=== PATIENT | female | born 1945 | race African-American/Black ===

== ENCOUNTER 2020-10-28 07:13 | Inpatient (IN) ==
[2020-10-28 08:24] LABS: Bilirubin,Urine Negative (Negative); Blood, Urine Small mg/dL (Negative); Glucose,Urine (UA) >=500 mg/dL (Negative); Ketones,Urine 20 mg/dL (Negative); Mucus,Urine Occasional /LPF (Occasional); Nitrite,Urine Negative (Negative); Protein,Urine 30 MG/DL; RBC,Urine 3 /HPF (0-4); Squamous Epithelial Cell,Urine Occasional /HPF (0-10); Urine Appearance CLEAR (Clear); Urine Color Yellow (Yellow); Urine Specific Gravity 1.032 (1.001-1.035); Urine Urobilinogen < 2.0 EU/DL (0.2-1.0); WBC,Urine <1 /HPF (0-6)
[2020-10-28] MEDS ORDERED: INSULIN REGULAR 100 UNIT/ML IV STA (08:27)
[2020-10-28 08:39] LABS: Basophils % 0.1 % (0.0-0.8); Eosinophils % 0.1 % (0.00-10.9); Hematocrit 50.7 VOL% (35.7-47.0); Hemoglobin 16.8 GM/DL (12.0-16.0); Immature Granulocytes Absolute 0.07 #; Lymphocytes # 0.1 10*3/uL (1.4-4.0); Lymphocytes % 1.8 % (21.3-54.2); Mean Corpuscular HGB Conc 33.1 GM/DL (32-36); Mean Platelet Volume 10.9 FL (9.6-12.0); Monocytes % 5.7 % (1.7-12.7); Neutrophils % 91.3 % (38.7-73.9); Platelet Count 159 T/CUMM (130-400); Red Blood Count 5.76 MC/CUMM (3.8-5.5); White Blood Count 7.3 T/CUMM (4-12)
[2020-10-28 08:58] LABS: Bilirubin,Total 0.9 MG/DL (0.2-1.0); Calcium 9.3 MG/DL (8.5-10.1); Osmolality,Calculated 280.1 MOS/KG (273-304); Potassium 5.1 MMOL/L (3.5-5.1); Total Protein 7.2 G/DL (6.4-8.3)
[2020-10-28 09:12] LABS: Lymphocytes 1 % (20-55); Platelet Estimate Adequate; Segmented Neutrophils 93 % (50-85); Total Cells Counted 100
[2020-10-28] MEDS ORDERED: SODIUM CHLORIDE 0.9% 500 ML IV STA (09:18)
[2020-10-28 09:29] LABS: INR 1.1; PT Patient Result 11.3 SECS (9.8-11.9)
[2020-10-28] MEDS ORDERED: MORPHINE 4 MG/1 ML VIAL IV STA (09:55)
[2020-10-28] MEDS ORDERED: ONDANSETRON 4 MG/2 ML VIAL IV STA (09:55)
[2020-10-28] MEDS ORDERED: MORPHINE 4 MG/1 ML VIAL ONE (09:56)
[2020-10-28] MEDS ORDERED: ONDANSETRON 4 MG/2 ML VIAL ONE (09:56)
[2020-10-28] MEDS ORDERED: HYDROmorphone 2 MG/1 ML VIAL IV PRN (10:35)
[2020-10-28] MEDS ORDERED: DOCUSATE SODIUM 100 MG CAPSULE PO PRN (10:36)
[2020-10-28] MEDS ORDERED: ACETAMINOPHEN 325 MG TABLET PO PRN (10:36)
[2020-10-28] MEDS ORDERED: hydrALAZINE 20 MG/1 ML VIAL IV PRN (10:36)
[2020-10-28] MEDS ORDERED: ALBUTEROL/IPRATROPIUM 3 ML NEB RESP TX PRN (10:36)
[2020-10-28] MEDS ORDERED: GLUCAGON 1 MG VIAL IM PRN ×2 (10:36→14:36)
[2020-10-28] MEDS ORDERED: ONDANSETRON 4 MG/2 ML VIAL IV PRN (10:36)
[2020-10-28] MEDS ORDERED: DEXTROSE 50% 25 GM/50 ML VIAL IV PRN ×2 (10:36→14:36)
[2020-10-28] MEDS ORDERED: PANTOPRAZOLE 40 MG TABLET PO SCH (10:45)
[2020-10-28] MEDS: SODIUM CHLORIDE 0.9% 1,000 ML IV SCH ×2 (12:05→20:05)
[2020-10-28] MEDS: cefTRIAXone 2,000 MG in SYRINGE 1 EACH IV SCH (13:00)
[2020-10-28] MEDS: INSULIN REGULAR 100 UNIT/ML SUBCUT SCH ×3 (13:13→20:53)
[2020-10-28] MEDS: atenoloL 50 MG TABLET PO SCH (16:03)
[2020-10-28] MEDS: amLODIPine 5 MG TABLET PO SCH (16:04)
[2020-10-28] MEDS: ANASTROZOLE 1 MG TABLET PO SCH (16:05)
[2020-10-28] MEDS: OLMESARTAN 20 MG TABLET PO SCH (16:06)
[2020-10-28] MEDS: ENOXAPARIN 40 MG/0.4 ML SYRINGE SUBCUT SCH (16:34)
[2020-10-29] MEDS: SODIUM CHLORIDE 0.9% 1,000 ML IV SCH ×3 (04:05→17:18)
[2020-10-29 05:54] LABS: Eosinophils # 0.1 10*3/uL (0.0-0.87); Eosinophils % 2.4 % (0.00-10.9); Hematocrit 41.7 VOL% (35.7-47.0); Immature Granulocytes Absolute 0.06 #; Lymphocytes # 0.2 10*3/uL (1.4-4.0); Lymphocytes % 3.2 % (21.3-54.2); Mean Corpuscular HGB Conc 32.1 GM/DL (32-36); Mean Corpuscular Volume 88.5 FL (87-102); Mean Platelet Volume 10.4 FL (9.6-12.0); Monocytes % 6.7 % (1.7-12.7); Neutrophils % 86.7 % (38.7-73.9); Platelet Count 138 T/CUMM (130-400); Red Blood Count 4.71 MC/CUMM (3.8-5.5); Red Cell Distribution Width 15.2 % (9.3-17.3); White Blood Count 5.9 T/CUMM (4-12)
[2020-10-29 06:01] LABS: Hemoglobin 13.4 GM/DL (12.0-16.0)
[2020-10-29 06:27] LABS: Albumin 2.5 G/DL (3.4-5.0); Bilirubin,Total 0.7 MG/DL (0.2-1.0); Calcium 8.2 MG/DL (8.5-10.1); Osmolality,Calculated 284.7 MOS/KG (273-304); Potassium 3.8 MMOL/L (3.5-5.1)
[2020-10-29 06:31] LABS: Eosinophils 1 % (0-10); Lymphocytes 6 % (20-55); Segmented Neutrophils 88 % (50-85); Total Cells Counted 100
[2020-10-29 06:32] LABS: Platelet Estimate Normal
[2020-10-29] MEDS: INSULIN REGULAR 100 UNIT/ML SUBCUT SCH ×4 (07:24→20:32)
[2020-10-29] MEDS: atenoloL 50 MG TABLET PO SCH (09:04)
[2020-10-29] MEDS: ANASTROZOLE 1 MG TABLET PO SCH (09:04)
[2020-10-29] MEDS: OLMESARTAN 20 MG TABLET PO SCH (09:04)
[2020-10-29] MEDS: amLODIPine 5 MG TABLET PO SCH (09:04)
[2020-10-29] MEDS: DEXAMETHASONE 4 MG TABLET PO SCH ×3 (09:04→20:31)
[2020-10-29] MEDS: PANTOPRAZOLE 40 MG VIAL IV SCH (09:05)
[2020-10-29] MEDS: ALPRAZolam 0.25 MG TABLET PO PRN (10:48)
[2020-10-29] MEDS: cefTRIAXone 2,000 MG in SYRINGE 1 EACH IV SCH (13:13)
[2020-10-29] MEDS: ENOXAPARIN 40 MG/0.4 ML SYRINGE SUBCUT SCH (13:13)
[2020-10-30 04:37] LABS: Hemoglobin 12.1 GM/DL (12.0-16.0); Immature Granulocytes Absolute 0.05 #; Lymphocytes # 0.1 10*3/uL (1.4-4.0); Lymphocytes % 1.6 % (21.3-54.2); Mean Corpuscular HGB Conc 31.8 GM/DL (32-36); Mean Corpuscular Volume 90.3 FL (87-102); Mean Platelet Volume 9.8 FL (9.6-12.0); Monocytes % 4.5 % (1.7-12.7); Neutrophils % 92.9 % (38.7-73.9); Platelet Count 118 T/CUMM (130-400); Red Blood Count 4.21 MC/CUMM (3.8-5.5); Red Cell Distribution Width 15.2 % (9.3-17.3); White Blood Count 5.1 T/CUMM (4-12)
[2020-10-30 04:55] LABS: Albumin 2.3 G/DL (3.4-5.0); Bilirubin,Total 0.6 MG/DL (0.2-1.0); Calcium 8.2 MG/DL (8.5-10.1); Potassium 3.9 MMOL/L (3.5-5.1); Total Protein 5.6 G/DL (6.4-8.3)
[2020-10-30 04:56] LABS: Eosinophils 1 % (0-10); Lymphocytes 3 % (20-55); Platelet Estimate Normal; Segmented Neutrophils 94 % (50-85); Total Cells Counted 100
[2020-10-30] MEDS: SODIUM CHLORIDE 0.9% 1,000 ML IV SCH ×2 (05:43→20:15)
[2020-10-30 07:03] LABS: Calcium 8.3 MG/DL (8.5-10.1); Osmolality,Calculated 283.8 MOS/KG (273-304); Potassium 3.8 MMOL/L (3.5-5.1)
[2020-10-30] MEDS: ALPRAZolam 0.25 MG TABLET PO PRN (08:28)
[2020-10-30] MEDS: ANASTROZOLE 1 MG TABLET PO SCH (09:39)
[2020-10-30] MEDS: atenoloL 50 MG TABLET PO SCH (09:39)
[2020-10-30] MEDS: OLMESARTAN 20 MG TABLET PO SCH (09:39)
[2020-10-30] MEDS: amLODIPine 5 MG TABLET PO SCH (09:39)
[2020-10-30] MEDS: DEXAMETHASONE 4 MG TABLET PO SCH ×3 (09:39→20:14)
[2020-10-30] MEDS: PANTOPRAZOLE 40 MG VIAL IV SCH (09:40)
[2020-10-30] MEDS: INSULIN REGULAR 100 UNIT/ML SUBCUT SCH ×4 (09:40→20:14)
[2020-10-30] MEDS: ENOXAPARIN 40 MG/0.4 ML SYRINGE SUBCUT SCH (12:06)
[2020-10-30] MEDS: cefTRIAXone 2,000 MG in SYRINGE 1 EACH IV SCH (12:12)
[2020-10-31 05:53] LABS: Basophils % 0.2 % (0.0-0.8); Hematocrit 35.8 VOL% (35.7-47.0); Hemoglobin 11.9 GM/DL (12.0-16.0); Immature Granulocytes % 1.3 %; Immature Granulocytes Absolute 0.06 #; Lymphocytes # 0.1 10*3/uL (1.4-4.0); Lymphocytes % 1.3 % (21.3-54.2); Mean Corpuscular HGB Conc 33.2 GM/DL (32-36); Mean Corpuscular Volume 87.1 FL (87-102); Mean Platelet Volume 10.1 FL (9.6-12.0); Monocytes % 5.1 % (1.7-12.7); Neutrophils % 92.1 % (38.7-73.9); Platelet Count 119 T/CUMM (130-400); Red Blood Count 4.11 MC/CUMM (3.8-5.5); White Blood Count 4.5 T/CUMM (4-12)
[2020-10-31 06:10] LABS: Calcium 8.3 MG/DL (8.5-10.1); Osmolality,Calculated 276.2 MOS/KG (273-304); Potassium 3.7 MMOL/L (3.5-5.1)
[2020-10-31 06:17] LABS: Lymphocytes 2 % (20-55); Platelet Estimate Decreased; Segmented Neutrophils 93 % (50-85); Total Cells Counted 100
[2020-10-31] MEDS: INSULIN REGULAR 100 UNIT/ML SUBCUT SCH ×4 (08:53→20:13)
[2020-10-31] MEDS: ANASTROZOLE 1 MG TABLET PO SCH (08:55)
[2020-10-31] MEDS: amLODIPine 5 MG TABLET PO SCH (08:55)
[2020-10-31] MEDS: DEXAMETHASONE 4 MG TABLET PO SCH ×3 (08:55→20:13)
[2020-10-31] MEDS: OLMESARTAN 20 MG TABLET PO SCH (08:55)
[2020-10-31] MEDS: PANTOPRAZOLE 40 MG VIAL IV SCH (08:56)
[2020-10-31] MEDS: atenoloL 50 MG TABLET PO SCH (08:56)
[2020-10-31] MEDS: ALPRAZolam 0.25 MG TABLET PO PRN (08:57)
[2020-10-31] MEDS: SODIUM CHLORIDE 0.9% 1,000 ML IV SCH ×2 (09:32→23:04)
[2020-10-31] MEDS: cefTRIAXone 2,000 MG in SYRINGE 1 EACH IV SCH (12:04)
[2020-10-31] MEDS: ENOXAPARIN 40 MG/0.4 ML SYRINGE SUBCUT SCH (12:04)
[2020-11-01 04:42] LABS: Basophils % 0.2 % (0.0-0.8); Hemoglobin 12.2 GM/DL (12.0-16.0); Lymphocytes # 0.1 10*3/uL (1.4-4.0); Lymphocytes % 1.6 % (21.3-54.2); Mean Corpuscular Volume 88.1 FL (87-102); Mean Platelet Volume 9.8 FL (9.6-12.0); Monocytes % 5.7 % (1.7-12.7); Neutrophils % 90.5 % (38.7-73.9); Platelet Count 117 T/CUMM (130-400); Red Cell Distribution Width 15.3 % (9.3-17.3); White Blood Count 4.9 T/CUMM (4-12)
[2020-11-01 04:56] LABS: Calcium 8.3 MG/DL (8.5-10.1); Potassium 3.5 MMOL/L (3.5-5.1)
[2020-11-01 05:10] LABS: Lymphocytes 1 % (20-55); Nucleated Red Blood Cells 1 (0-5); Platelet Estimate Normal; Segmented Neutrophils 92 % (50-85); Total Cells Counted 100
[2020-11-01] MEDS: DEXAMETHASONE 4 MG TABLET PO SCH ×2 (09:44→16:30)
[2020-11-01] MEDS: atenoloL 50 MG TABLET PO SCH (09:45)
[2020-11-01] MEDS: PANTOPRAZOLE 40 MG VIAL IV SCH (09:45)
[2020-11-01] MEDS: amLODIPine 5 MG TABLET PO SCH (09:45)
[2020-11-01] MEDS: OLMESARTAN 20 MG TABLET PO SCH (09:45)
[2020-11-01] MEDS: ANASTROZOLE 1 MG TABLET PO SCH (09:45)
[2020-11-01] MEDS: INSULIN REGULAR 100 UNIT/ML SUBCUT SCH ×2 (09:52→12:22)
[2020-11-01] MEDS: ENOXAPARIN 40 MG/0.4 ML SYRINGE SUBCUT SCH (12:22)
[2020-11-01] MEDS: cefTRIAXone 2,000 MG in SYRINGE 1 EACH IV SCH (12:22)
[2020-11-01] MEDS: SODIUM CHLORIDE 0.9% 1,000 ML IV SCH (12:24)
[2020-11-01 15:52] VITALS: BP 141/99
== END 2020-11-01 16:02 | disposition home health service (06) | DRG 54 ==
LOC: EDBD → EDUNIT# → N.ED 07:13 → SUATTDRO 09:52 → N.EDINP 09:52 → N.4E 11:33
PROVIDERS: ADMIT Emergency Medicine; ATTEND Internal Medicine